=== PATIENT | female | born 1955 | race Caucasian/White ===

== ENCOUNTER 2022-07-11 11:00 | Outpatient (REF) | payer OTHER, SELFPAY | END 2022-07-11 11:01 | disposition home or self-care (01) | LOC: HO.HOSX 11:00 | PROVIDERS: PCP Family Medicine; Visit Provider Physician Assistant | DX: Z13.89 Encounter for screening for other disorder (principal) ==

== ENCOUNTER 2022-08-11 15:37 | Outpatient (REF) | payer OTHER, SELFPAY | END 2022-08-11 15:38 | disposition home or self-care (01) | LOC: HO.HOSX 15:37 | PROVIDERS: Visit Provider Physician Assistant | DX: Z13.89 Encounter for screening for other disorder (principal) ==

== ENCOUNTER 2022-08-12 15:16 | Outpatient (REF) | payer OTHER, SELFPAY ==
--- NOTE | ~2022-08-12 | XR_ITS ---
EXAMINATION: XR CERVICAL SPINE CLINICAL INFORMATION: Radiculopathy, cervical region. COMPARISON: None available. TECHNIQUE: 3 views of the cervical spine were obtained. FINDINGS: There is mild straightening of cervical lordosis. There is 0 profile prostheses at the C4-C5 disc level for fusion. In addition there is C5, C6 and C7 fusion with ventral plate and screws and integration of bone graft at these disc levels. On flexion-extension views, there is no subluxation seen at any of the disc levels. There is mild degenerative ventral spondylosis at the C3-C4 disc level and mild loss of disc height at C2-C3 and C3-C4 disc levels. The prevertebral soft tissues are normal. XR/XR cervical spine 4V IMPRESSION: Disc fusion C4-C5 through C6-C7 disc levels as described above. The hardware is intact. No subluxation on flexion-extension views. Degenerative disc changes C2-C3 and C3-C4 disc levels with moderate ventral spondylosis at the C3-C4 disc level.
== END 2022-08-12 15:17 | disposition home or self-care (01) ==
LOC: HO.HOSX 15:16
PROVIDERS: Visit Provider Physician Assistant
DX: M54.12 Radiculopathy, cervical region (principal)
CPT/HCPCS: 72050

== ENCOUNTER 2022-08-15 12:16 | Outpatient (REF) | payer OTHER, SELFPAY ==
--- NOTE | ~2022-08-15 | MR_ITS ---
EXAMINATION: MR CERVICAL SPINE WITHOUT AND WITH CONTRAST CLINICAL INFORMATION: Radiculopathy, cervical region. COMPARISON: None available. TECHNIQUE: MRI of the cervical spine was performed with routine sequences without and with intravenous contrast. A total of 10 ml of Gadavist was intravenously administered. FINDINGS: There are postoperative findings related to anterior cervical discectomy and fusion from C4 to C7. There is moderate disc height loss at C3-C4. Bone marrow edema is seen across the left-sided C4-C5 facets reflecting advanced ongoing arthropathy. Right-sided facet edema is also seen at C5 but difficult to further characterize due to motion artifact. There is a small focus of nodular enhancement along the left lateral aspect of the spinal canal in the intradural extramedullary space at the T1 level measuring up to 10 mm in maximal oblique dimension as measured on the axial images. There is mild flattening of the left lateral aspect of the cord at this level. The extraspinal soft tissues and imaged intracranial contents are unremarkable. SPINAL LEVELS: C2-C3: Mild disc osteophyte complex with right facet ankylosis. Mild neural foraminal stenosis. No spinal canal stenosis. C3-C4: Disc osteophyte complex with uncovertebral hypertrophy and severe bilateral facet arthropathy resulting in severe spinal canal stenosis and severe bilateral neural foraminal stenosis. C4-C5: ACDF. Disc osteophyte complex with uncovertebral hypertrophy and facet arthropathy results in moderate to severe spinal canal stenosis and moderate bilateral neural foraminal stenosis. C5-C6: ACDF. No spinal canal stenosis. Left uncovertebral hypertrophy results in moderate left neural foraminal stenosis. C6-C7: ACDF. Mild left neural foraminal stenosis. No spinal canal stenosis. C7-T1: Mild disc osteophyte complex with mild to moderate facet arthropathy. No significant spinal canal or neural foraminal stenosis. MR/MR cervical spine wo/w con IMPRESSION: 1. Postoperative findings related to anterior cervical discectomy and fusion from C4 to C7. 2. At C3-C4 there is severe spinal canal stenosis and severe bilateral neural foraminal stenosis. 3. At C4-C5 there is moderate to severe spinal canal stenosis and moderate bilateral neural foraminal stenosis. 4. Small focus of nodular enhancement seen along the left lateral aspect of the spinal canal at the T1 level measuring up to 10 mm. This may represent a small meningioma.
== END 2022-08-15 12:17 | disposition home or self-care (01) ==
LOC: HO.MRI 12:16
PROVIDERS: PCP Family Medicine; Visit Provider Physician Assistant
DX: M54.12 Radiculopathy, cervical region (principal)
CPT/HCPCS: 72156; A9585

== ENCOUNTER → 2022-08-19 11:59 | Outpatient (BNVA) | payer OTHER, SELFPAY | PROVIDERS: PCP Family Medicine; Visit Provider Anesthesiology | DX: M54.12 Radiculopathy, cervical region (principal) ==